=== PATIENT | female | born 1995 | race Caucasian/White ===

== ENCOUNTER 2021-04-26 14:17 | Emergency (ER) | payer OTHER ==
[~2021-04-26] VITALS: Ht 165.1 cm; Wt 139.7 kg
[2021-04-26 17:13] LABS: BASOPHIL 0.3 % (0-2); EOSINOPHIL 1.9 % (0-5); HCT 45.7 % (37.0-47.0); HGB 13.9 g/dl (12.5-16.0); LYMPHOCYTE 25.7 % (15-48); MCHC 30.4 g/dL (32.0-36.0); MCV 85.6 fL (78.0-100.0); MONOCYTE 6.4 % (0-12); NEUTROPHIL 65.4 % (41-80); NRBC 0; PLT 388 K/uL (150-400); RBC 5.34 M/uL (4.20-5.40); RDW 15.7 % (11.5-14.0); WBC 11.6 K/uL (4.0-10.5)
[2021-04-26 17:21] LABS: BILIRUBIN NEGATIVE (NEGATIVE); BLOOD NEGATIVE Ery/uL (NEGATIVE); CLARITY CLEAR (CLEAR); COLOR YELLOW (YELLOW); GLUCOSE (U) 3+ mg/dL (NORMAL); LEUKOCYTES NEGATIVE Leu/uL (NEGATIVE); NITRITE NEGATIVE (NEGATIVE); PROTEIN NEGATIVE (NEGATIVE); SPECIFIC GRAVITY 1.015 (1.001-1.030); UROBILINOGEN 0.2 mg/dL (0.2-1.0); pH 5.5 (5.0-9.0)
[2021-04-26 17:23] LABS: AMPHETAMINES NEGATIVE (NEGATIVE); BARBITURATES NEGATIVE (NEGATIVE); ECSTASY (MDMA) NEGATIVE (NEGATIVE); MARIJUANA (THC) NEGATIVE (NEGATIVE); METHADONE NEGATIVE (NEGATIVE); OPIATES NEGATIVE (NEGATIVE); OXYCODONE NEGATIVE (NEGATIVE)
[2021-04-26 17:34] LABS: BUN/CREAT RATIO (CALC) 17.5 RATIO; CREATININE 0.8 mg/dL (0.51-0.95); POTASSIUM 4.6 mmol/L (3.5-5.1)
== END 2021-04-26 20:56 | disposition home or self-care (01) ==
LOC: FER 14:17
PROVIDERS: Nurse Practitioner Family
DX: R51.9 Headache, unspecified (principal); R55 Syncope and collapse; R07.89 Other chest pain; I49.8 Other specified cardiac arrhythmias; R00.0 Tachycardia, unspecified; E11.9 Type 2 diabetes mellitus without complications; I25.2 Old myocardial infarction; I11.0 Hypertensive heart disease with heart failure; I50.9 Heart failure, unspecified; Z86.69 Personal history of other diseases of the nervous system and sense organs; Z20.822 Contact with and (suspected) exposure to COVID-19; Z87.891 Personal history of nicotine dependence; Z88.0 Allergy status to penicillin; Z91.041 Radiographic dye allergy status
CPT/HCPCS: 36415; 70450; 71046; 72125; 80048; 80305; 81003; 84484; 85025; 93005; J1100; J1885; J2405; J2765; J7030; U0002

== ENCOUNTER 2021-05-03 13:24 | Emergency (ER) | payer OTHER ==
[2021-05-03 14:46] LABS: BASOPHIL 0.3 % (0-2); HCT 46.6 % (37.0-47.0); HGB 14.4 g/dl (12.5-16.0); LYMPHOCYTE 26.8 % (15-48); MCHC 30.9 g/dL (32.0-36.0); MCV 84.3 fL (78.0-100.0); MONOCYTE 6.3 % (0-12); MPV 9.7 fL (6.0-9.5); NEUTROPHIL 63.7 % (41-80); NRBC 0; PLT 393 K/uL (150-400); RBC 5.53 M/uL (4.20-5.40); RDW 15.5 % (11.5-14.0); WBC 14.5 K/uL (4.0-10.5)
[2021-05-03 15:14] LABS: BILIRUBIN NEGATIVE (NEGATIVE); BLOOD NEGATIVE Ery/uL (NEGATIVE); CLARITY CLEAR (CLEAR); COLOR YELLOW (YELLOW); GLUCOSE (U) 3+ mg/dL (NORMAL); LEUKOCYTES NEGATIVE Leu/uL (NEGATIVE); NITRITE NEGATIVE (NEGATIVE); PROTEIN NEGATIVE (NEGATIVE); UROBILINOGEN 0.2 mg/dL (0.2-1.0)
[2021-05-03 15:20] LABS: BUN/CREAT RATIO (CALC) 15.6 RATIO; CREATININE 0.9 mg/dL (0.51-0.95); POTASSIUM 4.5 mmol/L (3.5-5.1)
[2021-05-03] MEDS ORDERED: CYCLOBENZAPRINE10 MG PO (17:25)
[2021-05-03] MEDS ORDERED: ANTIVERT25 MG PO (17:25)
[2021-05-03] MEDS ORDERED: ZOFRAN4 M1 PO (17:25)
== END 2021-05-03 17:38 | disposition home or self-care (01) ==
LOC: FER 13:24
PROVIDERS: Nurse Practitioner Family
DX: G43.909 Migraine, unspecified, not intractable, without status migrainosus (principal); F07.81 Postconcussional syndrome; I10 Essential (primary) hypertension; E11.9 Type 2 diabetes mellitus without complications; J45.909 Unspecified asthma, uncomplicated; Z88.0 Allergy status to penicillin
CPT/HCPCS: 36415; 80048; 81003; 85025; J1200; J1885; J2405; J7030